=== PATIENT | male | born 1965 | race Caucasian/White ===

== ENCOUNTER → 2017-04-06 | Outpatient (CLI) | payer MEDICARE, OTHER | LOC: HEART 5 08:41 | DX: I20.9 Angina pectoris, unspecified (principal) | CPT/HCPCS: 78452; 93306; A9502; J2785 ==

== ENCOUNTER → 2021-12-10 | Outpatient (CLI) | payer MEDICARE, OTHER ==
[~2021-12-10] MED LIST: AMLODIPINE BESYL5 MG PO; AMOX TR-K CLV1 EAC4 PO; ASPIRIN EC81 MG PO; BUSPAR 10MG10 MG PO; BUSPIRONE HCL15 MG PO; CARVEDILOL6.25 MG PO; COREG6.25 MG PO; CYMBALTA60 MG PO; DULOXETINE HCL60 MG PO; ECOTRIN81 MG PO; FENOFIBRATE54 MG PO; HYZAAR 100-12.1 EACH PO; ISORDIL TAB 3030 MG PO; ISOSORBIDE MONO30 MG PO; JANUMET 50-1,01 EACH PO; KLONOPIN TAB 00.5 MG PO; LIPITOR TAB 2020 MG PO; LIPITOR40 MG PO; LOSARTAN POTAS100 MG PO; NICOTINE PATCH1 EAC2 TOP; NITROGLYCERIN0.4 MG SL; OMEPRAZOLE20 MG PO; OXCARBAZEPINE150 MG PO; PLAVIX 75 MG TA75 MG PO; PRILOSEC OTC20 MG PO; PROAIR HFA8.5 GM INH; PROTONIX 40 MG40 M1 PO; PROVENTIL HFA6.7 GM INH; TRICOR48 MG PO; TRILEPTAL150 MG PO; VITAMIN B-121000 MC2 SL; ZOFRAN ODT 4 MG4 MG PO
== END ==
LOC: KOH-I 13:22
DX: M51.16 Intervertebral disc disorders with radiculopathy, lumbar region (principal); M47.26 Other spondylosis with radiculopathy, lumbar region; M47.817 Spondylosis without myelopathy or radiculopathy, lumbosacral region
CPT/HCPCS: 72148